=== PATIENT | male | born 1950 | race Caucasian/White ===

== ENCOUNTER 2024-08-05 10:58 | Outpatient (CLI) | payer MEDICARE, BC, SELFPAY ==
[2024-08-05 11:34] LABS: Basophils Percent Auto 0.4 % (0.2-1.2); Eosinophils Absolute Auto 0.3 K/mm3 (0-0.3); Eosinophils Percent Auto 4.8 % (0-4.4); Hematocrit 38.7 % (42.0-52.0); Hemoglobin 13.1 g/dL (14.0-18.0); Immature Granulocyte Absolute 0.02 K/mm3 (0.00-0.031); Immature Granulocyte Percent A 0.4 % (0-0.5); Mean Corpuscular HGB Conc 33.9 g/dl (32-36); Mean Corpuscular Volume 94.6 fl (80-100); Mean Platelet Volume 8.6 fl (7.4-10.4); Monocytes Absolute Auto 0.5 K/mm3 (0.1-0.6); Monocytes Percent Auto 8.8 % (2.6-8.5); Neutrophils Absolute Auto 3.4 K/mm3 (1.3-6.7); Neutrophils Percent Auto 64.6 % (45.5-73.1); Platelet Count Result 207 k/mm3 (150-375); Red Blood Count 4.09 M/mm3 (4.6-6.20); Red Cell Distribution Width 12.9 % (11.5-14.5); White Blood Count 5.2 K/mm3 (4.5-10.0)
[2024-08-05 12:42] LABS: Iron 110 ug/dL (49-181)
[2024-08-05 12:49] LABS: Alanine Aminotransferase 30 U/L (6-50); Albumin Level 4.7 g/dL (3.5-5.1); Alkaline Phosphatase 76 U/L (38-126); Anion Gap 8 mmol/L (4-12); Aspartate Amino Transferase 32 U/L (17-59); Bilirubin,Total 0.6 mg/dL (0.2-1.3); Blood Urea Nitrogen 13 mg/dL (9-20); Calcium 9.8 mg/dL (8.4-10.2); Carbon Dioxide 29 mmol/L (22-30); Chloride 103 mmol/L (98-107); Estimated Glomerular Filt Rate > 60; Glucose 105 mg/dL (65-110); Lactate Dehydrogenase 199 U/L (120-246); Potassium 4.1 mmol/L (3.4-5.0); Sodium 140 mmol/L (137-145)
[2024-08-05 12:51] LABS: Percent Iron Saturation 33 % (20-50)
[2024-08-05 15:31] LABS: Folic Acid > 20.0 ng/mL (2.76->20)
[2024-08-07 05:26] LABS: Protein, Total 7.5 g/dL (6.1-8.1)
[2024-08-08 16:07] LABS: Methylmalonic Acid 67 nmol/L (69-390)
[2024-08-11 13:09] LABS: Soluble Transferrin Receptor 1.21 mg/L (0.76-1.76)
[2024-08-12 12:49] LABS: Albumin 4.2 g/dL (3.8-4.8); Alpha 1 Globulin 0.3 g/dL (0.2-0.3); Alpha 2 Globulin 0.8 g/dL (0.5-0.9); Beta 1 Globulin 0.6 g/dL (0.4-0.6); Gamma Globulin 1.3 g/dL (0.8-1.7)
== END 2024-08-05 10:59 | disposition home or self-care (01) ==
PROVIDERS: PCP Internal Medicine; Visit Provider Internal Medicine Hematology & Oncology
DX: D64.9 Anemia, unspecified (principal)
CPT/HCPCS: 36415; 80053; 82607; 82728; 82746; 83540; 83550; 83615; 83921; 84155; 84165; 84238; 85025

== ENCOUNTER 2025-02-10 09:56 | Outpatient (CLI) | payer MEDICARE, BC, SELFPAY ==
[2025-02-10 10:07] LABS: Hematocrit 36.1 % (42.0-52.0); Hemoglobin 12.7 g/dL (14.0-18.0); Mean Corpuscular HGB Conc 35.2 g/dl (32-36); Mean Corpuscular Hemoglobin 32.5 pg (26-34); Mean Corpuscular Volume 92.3 fl (80-100); Mean Platelet Volume 8.7 fl (7.4-10.4); Platelet Count Result 189 k/mm3 (150-375); Red Blood Count 3.91 M/mm3 (4.6-6.20); Red Cell Distribution Width 12.9 % (11.5-14.5)
--- OUTSIDE RECORDS SUMMARY | 2025-02-10 11:04 | XMS_ITS | Clinical Summary ---
[facility] Organization [facility] Address [address] [place] [address] Care Team Providers Care Briquette Molder Name Role Phone Josh Ruth MD Primary Care Provider [phone] Allergies No known active allergies Medications aspirin (ECOTRIN EC) 81 mg Tablet, Delayed Release (E.C.) Take 81 mg by mouth daily. Active atorvastatin (LIPITOR) 40 mg tablet Take 40 mg by mouth daily. Active carvediloL (COREG) 12.5 mg tablet Take 12.5 mg by mouth 2 times daily. Active cyanocobalamin 1,000 mcg Tablet TAKE 1 TABLET BY MOUTH TWICE A WEEK 05/07/2024 Active NIFEdipine (PROCARDIA XL) 30 mg Extended Release 24 hour tablet Take 30 mg by mouth daily. 06/16/2024 Active ticagrelor (BRILINTA) 90 mg Tablet Take 90 mg by mouth 2 times daily. Active valsartan (DIOVAN) 320 mg tablet Take 320 mg by mouth daily. Active folic acid/multivit-mi n/lutein (CENTRUM SILVER ORAL) Take by mouth. Active Active Problems No known active problems Encounters Date Type Department Care Team Description 01/27/2025 External Device Data [facility] ABSTRACTION Provider, Abstract 01/18/2025 External Device Data [facility] ABSTRACTION Provider, Abstract 01/05/2025 External Device Data [facility]CTION Provider, Abstract 12/30/2024 External Device Data [facility]STRACTION Provider, Abstract 12/03/2024 External Device Data [facility] ABSTRACTION Provider, Abstract from Last 3 Months Family History Medical History Relation Name Comments Heart Disease Brother 1 No Known Problems Brother 2 Heart Disease Brother 3 No Known Problems Brother 4 No Known Problems Child 1 No Known Problems Child 2 No Known Problems Child 3 No Known Problems Child 4 Heart Disease Father No Known Problems Mother No Known Problems Sister 1 No Known Problems Sister 2 No Known Problems Sister 3 Relation Name Status Comments Brother 1 Alive Brother 2 Alive Brother 3 Brother 4 Alive Child 1 Alive Child 2 Alive Child 3 Alive Child 4 Alive Father Mother Sister 1 Sister 2 Alive Sister 3 Alive Social History Tobacco Use Types Packs/Day Years Used Date Smoking Tobacco: Former Cigarettes 0.5 40 0 08/05/1971 - 08/05/2011 Smokeless Tobacco: Never Tobacco Cessation:Counseling Given: Not Answered Alcohol Use Standard Drinks/Week Comments Yes 0 (1 standard drink = 0.6 oz pur e alcohol) Socially Sex and Gender Information Value Date Recorded Sex Assigned at Not on file Legal Sex Male 8:40 AM CDT Gender Identity Not on file Sexual Orientation Not on file Last Filed Vital Signs Vital Sign Reading Time Taken Comments Blood Pressure 165/74 08/19/2024 10:32 AM CDT Pulse 57 08/19/2024 10:32 AM CDT Temperature 36.7 C (98 F) 08/19/2024 10:32 AM CDT Respiratory Rate 18 08/19/2024 10:32 AM CDT Oxygen Saturation 97% 08/19/2024 10:32 AM CDT Inhaled Oxygen Concentration - - Weight 84.8 kg (187 lb) 08/19/2024 10:32 AM CDT Height - - Body Mass Index - - Plan of Treatment Upcoming Encounters Date Type Department Care Team (Late st Contact Info) Description 02/17/2025 11:30 AM CDT Office Visit [facility] Oncology and H[facility]ology - [place] [address] [facility] [address] [place] [address] Chago Richmond MD [address] [place] [address] Health Maintenance Due Date Last Done Comments DTAP/TDAP/TD VACCINES (1 - Tdap) 1967 Lung Cancer Screening 1998 RSV VACCINE (60+ or ) (1 - 1-dose 75+ series) 2023 INFLUENZA VACCINE (#1) 2024 , 08/17/2020, 09/28/2019, Additional history exists COVID-19 Vaccine (2023-2 5 season) 2024 09/08/2021, 01/24/2021, 01/03/2021 PNEUMOCOCCAL VACCINE 50+ YEARS Completed 05/09/2015 , 11/08/2014 ZOSTER VACCINE Completed 05/07/2023, 12/28/2022 Insurance MEDICARE PART A AND B [facility] Care Teams Briquette Molder Relationship Specialty Start Date End Date Josh Ruth MD [address] [place] [id number] PCP - General Internal Medicine 07/01/24
--- OUTSIDE RECORDS SUMMARY | 2025-02-10 11:04 | XMS_ITS | Clinical Summary ---
Author Organization [facility] Address [address] [place] [address] Care Team Providers Care Robotic Welder Name Role Phone Josh Ruth MD Primary Care Provider [phone] Source Comments [facility],non-owned Affiliates and Associated Physician Practices is amultiple site organization consisting of ambulatory clinics and hospital sitesin [place], [place], [place] and [place]. This disclosure is being madepursuant to the Care Everywhere program and may not contain all information available regarding this patient. 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 Social History Tobacco Use Types Packs/Day Years Used Date Smoking Tobacco: Former Alcohol Use Standard Drinks/Week Comments Yes 0 (1 standard drink = 0.6 oz pur e alcohol) Sex and Gender Information Value Date Recorded Sex Assigned at Not on file Gender Identity Not on file Sexual Orientation Not on file Last Filed Vital Signs Vital Sign Reading Time Taken Comments Blood Pressure 178/80 01/25/2016 9:26 AM CDT Pulse 60 01/25/2016 9:26 AM CDT Temperature 36.6 C (97.9 F) 01/25/2016 9:26 AM CDT Respiratory Rate - - Oxygen Saturation 99% 01/25/2016 9:26 AM CDT Inhaled Oxygen Concentration - - Weight 83 kg (183 lb) 01/25/2016 9:26 AM CDT Height 172.7 cm (5' 8 ) 01/25/2016 9:26 AM CDT Body Mass Index 27.83 01/25/2016 9:26 AM CDT Plan of Treatment Health Maintenance Due Date Last Done Comments HEPATITIS C SCREENING 05/13/1968 DTAP/TDAP/TD VACCINES (1 - Tdap) 1967 PNEUMOCOCCAL VACCINE 50+ (1 of 1 - PCV) 1998 ZOSTER VACCINE (1 of 2) 1998 Respiratory Syncytial Virus (RSV) Vaccine Pt: or over 60 yrs (1 - 1-dose 75+ series) 2023 COVID-19 VACCINE (2023-2 5 season) 2024 01/24/2021, 01/03/2021 INFLUENZA VACCINE (#1) 2024 DEPRESSION SCREENING 11/11/2024 HEPATITIS B VACCINE Aged Out No longe r eligible based on patient's age to complete this topic HIB VACCINE Aged Out No longer eligi ble based on patient's age to complete this topic HPV VACCINE Aged Out No longer eligi ble based on patient's age to complete this topic MENINGOCOCCAL (Group B) VACCINE SHARED DECISION-MAKING Aged Out No longer eligible based on patient's age to complete this topic MENINGOCOCCAL GROUPS A/C/Y/W VACCINE Aged Out No longer eligible b ased on patient's age to complete this topic Care Teams Robotic Welder Relationship Specialty Start Date End Date Josh Ruth MD [address] [place] [phone] PCP - General 11/07/10
--- OUTSIDE RECORDS SUMMARY | 2025-02-10 11:04 | XMS_ITS | Continuity of Care Document ---
Author Organization [facility] Address [address] [place] [address] Phone Care Team Providers Care Mason Tender Name Role Phone Fermin Mena Unavailable Unavailable Procedures Procedure Date Eye Exam & Treatment Refraction Advance Directives Directive Yes / No Effective Date File Name No Information Encounters Encounter Description Practice Location Reason(s) For Visit Diagnoses Date Provider Providers Copied on Encounter [facility], [address], [place], [place], [id number], [place] tel:[phone] [facility] No Information [address] Rajesh Fermin. [address] [facility] [address], [place], [address], [place]. tel:[phone] Family History Family Member Type Diagnosis Age At Onset No Information Payers Payer name Insurance type Covered alliance party ID Authoriza tion(s) No Information Social History Type Description Quantity Date Captured Comments Sex Male Smoking Status No Information Chief Complaint And Reason For Visit No Information Reason For Referral Reason For Referral No Information History Of Present Illness Encounter Date Complaint History Of Prese nt Illness No Information Functional Status Date Functional Assessmen t No Information Instructions Date Instruction Additional Infor mation No Information Assessments Type Assessment Date No Information Patient Care Teams Name Effective Dates (start - stop) Status Members No Information
--- OUTSIDE RECORDS SUMMARY | 2025-02-10 11:04 | XMS_ITS | Clinical Summary ---
Author Organization [facility] Address [address] [place] [address] Phone Care Team Providers Care Retail Bakery Manager Name Role Phone Josh Ruth MD Primary Care Provider [phone] Johny Davis MD Unavailable [phone] Bassam Erazo MD Unavailable Mayra Alonzo MD Unavailable Allergies No known active allergies Medications lisinopril (PRINIVIL, ZESTRIL) 20 MG Tablet Take 20 mg by mouth daily. Active atorvastatin (LIPITOR) 40 MG Tablet Take 40 mg by mouth daily. Active Valsartan 320 MG Tablet Take 320 mg by mouth daily. Active NIFEdipine CR (PROCARDIA-XL) 30 MG TABLET SR 24 HR Take 30 mg by mouth daily. Active Multiple Vitamins-Mineral s (CENTRUM SILVER PO) Take by mouth. Active aspirin EC 81 MG Tablet Delayed Response Take 81 mg by mouth daily. Active ticagrelor (Brilinta) 90 MG Tablet Take 90 mg by mouth 2 times daily. Active carvedilol (COREG) 12.5 MG Tablet Take 12.5 mg by mouth 2 times daily. Active Cyanocobalamin (VITAMIN B12 PO) Take by mouth. Active Active Problems Problem Noted Date Diagnosed Date Obstructive sleep apnea on CPAP 01/10/2024 Overview (04/29/2024): Diagnosed 01/2024. Family history of heart disease 05/01/2022 Overview (05/01/2022): Father with myocardial infarction and CABG in his 80s and paternal grandfather passed from a myocardial infarction in his 50s. 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. Stopped smoking with greater than 30 pack year h istory 04/27/2021 Overview (04/27/2021): 33 pack year history. Quit 2010. History of therapeutic radiation 02/05/2017 Overview (02/04/2018): Completed adjuvant postoperative radiotherapy 02/09/2011. 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 Resolved Problems Problem Noted Date Diagnosed Date Resolved Date History of surgery on upper extremity 02/04/2018 02/10/2019 Overview (02/04/2018): 11/23/2010 radical resection of right elbow leiomyosarcoma with a complex rotational flap closure of the wide excision defect which measured 5 cm x 13 cm. Immunizations Immunization Administration Dates Next Due Covid-19, Mrna, Lnp-s, Pf, 30 Mcg/0.3 Ml Dose (P fizer) 01/24/2021,01/03/2021 Family History Medical History Relation Name Comments No Known Problems Brother 1 No Known Problems Brother 2 No Known Problems Brother 3 No Known Problems Brother 4 Congestive Heart Failure Father Heart Attack Father OR and CABG at 82 years of age. Dementia Mother Heart Attack Paternal Grandfather Passed from heart attack. Hypertension Sister 1 No Known Problems Sister 2 No Known Problems Sister 3 Relation Name Status Comments Brother 1 Alive Brother 2 Alive Brother 3 Alive Brother 4 Alive Father Mother Paternal Grandfather Sister 1 Sister 2 Alive Sister 3 Alive Social History Tobacco Use Types Packs/Day Years Used Date Smoking Tobacco: Former Cigarettes 0.8 44 0 1966 - 05/18/2010 Smokeless Tobacco: Former Quit: 08/08/2011 Tobacco Cessation:Counseling Given: Not Answered Alcohol Use Standard Drinks/Week Comments Yes 1 (1 standard drink = 0.6 oz pur e alcohol) Sex and Gender Information Value Date Recorded Sex Assigned at Not on file Legal Sex Male 10:42 PM CDT Gender Identity Not on file Sexual Orientation Not on file Last Filed Vital Signs Vital Sign Reading Time Taken Comments Blood Pressure 133/79 04/29/2024 9:24 AM CDT Pulse 62 04/29/2024 9:24 AM CDT Temperature 36.6 C (97.8 F) 04/29/2024 9:24 AM CDT Respiratory Rate 16 04/25/2023 9:31 AM CDT Oxygen Saturation 98% 04/29/2024 9:24 AM CDT Inhaled Oxygen Concentration - - Weight 84.6 kg (186 lb 9.6 oz) 04/29/2024 9:24 A M CDT Height 172.7 cm (5' 8 ) 04/29/2024 9:24 AM CDT Body Mass Index 28.37 04/29/2024 9:24 AM CDT Plan of Treatment Upcoming Encounters Date Type Department Care Team (Late st Contact Info) Description 04/29/2025 9:00 AM CDT [facility] [address] [place] [address] Johny Davis MD [address] [place] [address] Discharge Disposition: Discharged to home or Selfcare Health Maintenance Due Date Last Done Comments Hepatitis C Virus (HCV) Screening 1950 TdaP Immunization 1950 Respiratory Syncytial Virus (RSV) Immunization (Adult) (1 - 1-dose 75+ series) 2023 Influenza Immunization (#1) 07/12/202408/11, 08/30/2022, 08/24/2021, Additional history exists SARS-COV-2 Immunization ( season) 2024 08/21/2023, 08/30/2022, 09/06/2021, Additional history exists Lung Cancer Screening 04/14/2025 04/14/2024 , 04/16/2023, 03/15/2022, Additional history exists Pneumococcal Immunization (50+ years) Completed 05/09/2015, 11/08/2014 Pneumococcal Immunization Combined Discontinued 05/09/2015, 11/08/2014 Zoster Immunization Completed 05/07/2023, 3 Hepatitis B Immunization Aged Out No longer eligible based on patient's age to complete this topic Meningococcal Immunization (ACWY) Aged Out No longer eligible based on patient's age to complete this topic Rotavirus Immunization Aged Out No lo nger eligible based on patient's age to complete this topic Procedures Procedure Name Priority Date/Time Associated Diagnosis Comments CT CHEST SCREENING WO Routine 04/14/2024 6:03 PM CDT History of sarcoma of soft tissue History of tobacco use from Last 3 Months or Most Recently Relevant to Health Maintenance Results * CT CHEST SCREENING WO (04/14/2024 6:03 PM CDT) Anatomical Region Laterality Modality Chest N/A Computed Tomogra phy 04/14/2024 10:2 7 PM CDT Impressions 04/14/2024 10:31 PM CDT IMPRESSION: 1. Unchanged 5 mm solid nodule in the left lower lobe. No new pulmonary nodules. 2. Mild emphysema. 3. Severe coronary artery calcifications. Lung-RADS category 2S: Benign appearance or behavior. Finding other than a pulmonary nodule which is potentially clinically significant. Recommendation: Low dose Screening CT of chest in 12 months. Narrative 04/14/2024 10:31 PM CDT EXAM DESCRIPTION: CT CHEST SCREENING WO REASON FOR STUDY: Screening CT of the chest in a former smoker with a 30 pack year smoking history. Additional history: Stopped smoking 13 years prior. TECHNIQUE: Low dose CT scan of the chest was performed without intravenous contrast using helical scanning technique. The exam extends from the lung apices through the lung bases. Automatic exposure control was used as a dose optimization technique. NOTE: This study was performed for the specific purposes of lung cancer screening and is not an alternative to diagnostic chest CT. RADIATION DOSE: CT dose index volume (CTDIvol) = 3.62 mGy COMPARISON: CT chest 04/16/2023 FINDINGS: SMOKING RELATED LUNG DISEASE: Mild emphysema and biapical pleural-parenchymal scarring. LUNG NODULES: Unchanged 5 mm solid nodule in the left lower lobe on image 114. No new pulmonary nodules appreciated. CORONARY ARTERY CALCIFICATION: Severe OTHER: No pleural effusion or pneumothorax. The central airways are patent. Heart size is normal. No pericardial effusion. Thoracic aorta is nonaneurysmal and contains a moderate amount of calcified atherosclerotic plaque. There are multiple prominent but nonenlarged mediastinal lymph nodes. Visualized portions of the upper abdomen are unremarkable. There is diffuse idiopathic skeletal hyperostosis of the thoracic spine. There are no suspicious osseous lesions. THIS IS AN ELECTRONICALLY VERIFIED FINAL REPORT 04/14/2024 10:27 PM - Electronically signed by Luis Suero M.D. AM: AM Report ID: [id number] Reading Location: [place] [address] Procedure Note Luis Suero MD - 04/14/2024 EXAM DESCRIPTION: CT CHEST SCREENING WO REASON FOR STUDY: Screening CT of the chest in a former smoker with a 30 pack year smoking history. Additional history: Stopped smoking 13 years prior. TECHNIQUE: Low dose CT scan of the chest was performed without intravenous contrast using helical scanning technique. The exam extends from the lung apices through the lung bases. Automatic exposure control was used as a dose optimization technique. NOTE: This study was performed for the specific purposes of lung cancer screening and is not an alternative to diagnostic chest CT. RADIATION DOSE: CT dose index volume (CTDIvol) = 3.62 mGy COMPARISON: CT chest 04/16/2023 FINDINGS: SMOKING RELATED LUNG DISEASE: Mild emphysema and biapical pleural-parenchymal scarring. LUNG NODULES: Unchanged 5 mm solid nodule in the left lower lobe on image 114. No new pulmonary nodules appreciated. CORONARY ARTERY CALCIFICATION: Severe OTHER: No pleural effusion or pneumothorax. The central airways are patent. Heart size is normal. No pericardial effusion. Thoracic aorta is nonaneurysmal and contains a moderate amount of calcified atherosclerotic plaque. There are multiple prominent but nonenlarged mediastinal lymph nodes. Visualized portions of the upper abdomen are unremarkable. There is diffuse idiopathic skeletal hyperostosis of the thoracic spine. There are no suspicious osseous lesions. THIS IS AN ELECTRONICALLY VERIFIED FINAL REPORT 04/14/2024 10:27 PM - Electronically signed by Luis Suero M.D. AM: AM Report ID: [id number] Reading Location: [id number] IMPRESSION: 1. Unchanged 5 mm solid nodule in the left lower lobe. No new pulmonary nodules. 2. Mild emphysema. 3. Severe coronary artery calcifications. Lung-RADS category 2S: Benign appearance or behavior. Finding other than a pulmonary nodule which is potentially clinically significant. Recommendation: Low dose Screening CT of chest in 12 months. us Johny Davis MD IMG CT ORDERABLES Final Result from Last 3 Months or Most Recently Relevant to Health Maintenance Insurance MEDICARE [facility] Care Teams Retail Bakery Manager Relationship Specialty Start Date End Date Josh Ruth MD [address] [facility] [address] [place] [address] PCP - General Internal Medicine 08/29/15 Johny Davis MD [address] [facility] [address] [place] [phone] Consulting Physician Radiation Oncology 02/05/17 Bassam Erazo MD [address] [facility] [address] [place] [phone] Consulting Physician General Surgery 02/05/17 Mayra Alonzo MD [address] [place] [address] Consulting Physician Dermatology 02/10/19
--- OUTSIDE RECORDS SUMMARY | 2025-02-10 11:04 | XMS_ITS | CONTINUITY OF CARE DOCUMENT ---
Author Name stefania aguiar Address Unknown Organization [facility] Address [address] [place] [address] Phone [phone] Care Team Providers Care Hair Dresser Name Role Phone Cory CARDENAS, Shad Unavailable BARBARA CARDENAS, LUCIA Unavailable [phone] LUCIA JIMENEZ MD Unavailable PROBLEMS Condition Status Date Provider Notes Screening active Shad Ray MD Anemia of chronic disease active Shad Ray MD Valvular heart disease active Shad Ray MD Diastolic dysfunction and lvh active Shad Ray MD Ventricular tachycardia, unspecified active Shad Ray MD Groin pain, right completed - Shad Ray MD LVH completed - Shad Ray MD Sleep apnea active Shad Ray MD Overweight active Shad Ray MD did not want wegovy CAD active Shad Ray MD Hemiblock, left anterior completed - Shad Ray MD AV block, 1st degree completed - Shad Ray MD Bradycardia And first degree av block;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;neg tsh active Shad Ray MD covid 19;2020;HAD VACCINE active Shad Ray MD Tobacco use, quit active Shad Ray MD FAMILY HISTORY OF HEART DISEASE active Shad Ray MD dad had chf HYPERTENSION, ESSENTIAL;neg duplex active Shad Ray MD Hyperlipidemia;NEG CRP and lpa active Shad Ray MD in study Sarcoma, 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 ENCOUNTERS Date Type Provider Location Encounter Diag nosis - In-person encounter Office Visit Shad Ray MD [place] [facility] Hyperlipidemia;NEG CRP and lpaHemiblock, left anteriorOverweight - In-person encounter Office Visit Shad Ray MD [facility] Bradycardia And first degree av block;DUE TO BB;neg tshAV block, 1st degree - In-person encounter Office Visit Shad Ray MD [facility] - In-person encounter Office Visit Shad Ray MD [facility] LVHGroin pain, rightVentricular tachycardia, unspecifiedDiastolic dysfunction and lvh - In-person encounter Office Visit Shad Ray MD [facility] - In-person encounter Office Visit Shad Ray MD [facility] - In-person encounter Office Visit Shad Ray MD [facility] Sarcoma, boneHyperlipidemia;NEG CRP and lpaHYPERTENSION, ESSENTIAL;neg duplexFAMILY HISTORY OF HEART DISEASETobacco use, quitcovid ;HAD VACCINEBradycardia And first degree av block;DUE TO BB;neg tshCADOverweightSleep apnea VITAL SIGNS Date Observation Value Provider Body Mass Index (Ratio) 28.89 kg/m2 Heidy Ray MD weight E&M 190 [lb_av] Lisbeth Ulloa pulse rate 67 /min Lisbeth Ulloa blood pressure, cuff size regular Christiano Ulloa blood pressure, diastolic 78 mm[Hg] Christiano Ulloa blood pressure, systolic 118 mm[Hg] Romulo Ulloa oxygen saturation, oximetry 97 % Lisbeth Ulloa respiratory rate E&M 12 /min Lisbeth Ulloa height E&M 68 [in_i] Lisbeth Ulloa Body Mass Index (Ratio) 27.97 kg/m2 Heidy Ray MD blood pressure, diastolic 89 mm[Hg] Jyothi dave Tavarez blood pressure, systolic 161 mm[Hg] Bev james Corby oxygen saturation, oximetry 98 % Ileana Corby pulse rate 68 /min Ileana Corby weight E&M 184 [lb_av] Ileana Corby blood pressure, cuff size large An dave Corby height E&M 68 [in_i] Ileana Corby Body Mass Index (Ratio) 27.82 kg/m2 Heidy Ray MD blood pressure, cuff size regular [facility], diastolic 90 mm[Hg] Ke rri Fideluenerajaniuniversity [facility] medical centergloria blood pressure, systolic 156 mm[Hg] Joan Gustafson oxygen saturation, oximetry 98 % Lindsey Gustafson respiratory rate E&M 12 /min Lindsey mcintyre pulse rate 67 /min Lindsey Norwood [facility] weight E&M 183 [lb_av] Lindsey Saravanannenfe [facility] height E&M 68 [in_i] Lindsey Saravanannebk [facility] Body Mass Index (Ratio) 28.13 kg/m2 Heidy Ray MD blood pressure, cuff size regular Ja rret blood pressure, diastolic 92 mm[Hg] Daniel rret blood pressure, systolic 176 mm[Hg] Chau coronado pulse rate 57 /min Ismael respiratory rate E&M 14 /min oxygen saturation, oximetry 99 % weight E&M 185 [lb_av] Ismael height E&M 68 [in_i] Ismael Body Mass Index (Ratio) 27.52 kg/m2 Heidy Ray MD blood pressure, cuff size regular rret blood pressure, diastolic 91 mm[Hg] Ja rret blood pressure, systolic 191 mm[Hg] Jar ret pulse rate 51 /min Ismael oxygen saturation, oximetry 99 % respiratory rate E&M 12 /min Isamel weight E&M 181 [lb_av] Ismael height E&M 68 [in_i] Ismael Body Mass Index (Ratio) 27.67 kg/m2 Heidy Ray MD blood pressure, cuff size regular [facility] blood pressure, diastolic 82 mm[Hg] rret blood pressure, systolic 170 mm[Hg] [facility] ret pulse rate 50 /min Ismael oxygen saturation, oximetry 97 % respiratory rate E&M 12 /min Ismael weight E&M 182 [lb_av] Ismael height E&M 68 [in_i] Ismael Body Mass Index (Ratio) 27.52 kg/m2 Heidy Ray MD blood pressure, diastolic -1 mm[Hg] Carito Villavicencio blood pressure, systolic 150 mm[Hg] Marjan Delcid blood pressure, diastolic 87 mm[Hg] Dionicio Peck blood pressure, systolic 150 mm[Hg] She ren Peck oxygen saturation, oximetry 96 % Stephanie Peck pulse rate 52 /min Stephanie Peck respiratory rate E&M 18 /min Stephanie Peck blood pressure, cuff size regular Dionicio Peck height E&M 68 [in_i] Stephanie Peck weight E&M 181 [lb_av] Stephanie Peck ALLERGIES No Known Drug Allergies HISTORY OF MEDICATION USE Medication Status Instructions Dates Provider Indications Com ments valsartan 320 mg tablet active TAKE 1 TABLET BY MOUTH DAILY Thea Ruple nifedipine 30 mg tablet extended release 24hr active TAKE 1 TABLET ONCE DAILY Phyllis Rushing nifedipine 30 mg tablet extended release 24hr completed Take 1 tablet by mouth once a day - Phyllis Rushing Xarelto 2.5 mg tablet active Take 1 tablet by mouth twice a day Yane Tavarez RN nifedipine 30 mg tablet extended release 24hr completed - Yane Tavarez RN Procardia XL 30 mg tablet extended release 24hr completed TAKE 1 TABLET BY MOUTH EVERY DAY - Shad Ray MD Brilinta 90 mg tablet completed Take 1 tablet by mouth twice a day - Shad Ray MD cyanocobalamin (vitamin B-12) 1,000 mcg capsule active every 72 hours Shad Ray MD valsartan 320 mg tablet completed Take 1 tablet by mouth once daily - Thea Ruple Coreg 12.5 mg tablet active Take 1 tablet by mouth twice a day Lindsey Gustafson Brilinta 90 mg tablet completed TAKE 1 TABLET TWICE A DAY - Lindsey Gustafson pantoprazole 40 mg tablet,delayed release (DR/EC) completed Take 1 tablet by mouth once a day - Sofia Shoemaker NP Aspirin Childrens 81 mg tablet,chewable active Take 1 tablet by mouth once a day Sofia Shoemaker NP lisinopril 20 mg tablet completed TAKE 1 TABLET BY MOUTH EVERY DAY - Shad Ray MD metoprolol tartrate 25 mg tablet completed Take 1 tablet by mouth twice a day - Sofia Shoemaker NP atorvastatin 40 mg tablet active Take 1 tablet by mouth once daily Sofia Shoemaker NP SOCIAL HISTORY Date Observation Value Provider personal history of marijuana use no Shad Ray MD drug use no Shad Serota Jacquelyn Mejia alcohol use, average drinks per day social Shad Ray MD alcohol use yes Shad Mejia cigarette use yes Shad Ray MD smoking status Former smoker Shad james MD personal history of marijuana use no Ileana Tavarez drug use no Ileanajacob Tavarez alcohol use, average drinks per day social Ileana Tavarez alcohol use yes Ileana Tavarez cigarette use yes Ileana Tavarez smoking status Former smoker Ileana barros personal history of marijuana use no Shad Ray MD drug use no Shad Mejia alcohol use, average drinks per day social Shad Ray MD alcohol use yes Shad Serota Jacquelyn Mejia cigarette use yes Shad Ray MD smoking status Former smoker Shad james MD personal history of marijuana use no Shad Ray MD drug use no Shad Serota Jacquelyn Mejia alcohol use, average drinks per day social Shad Ray MD alcohol use yes Shad Mejia cigarette use yes Shad Ray MD smoking status Former smoker Shad james MD quit smoking, stage quit Shad clemente MD personal history of marijuana use no Sofia Zepedareri DISTANCE LEARNING TECHNICIAN drug use no Sofia Zepedareri DISTANCE LEARNING TECHNICIAN alcohol use, average drinks per day social Sofia Zepedareri DISTANCE LEARNING TECHNICIAN alcohol use yes Sofia Zepedareri DISTANCE LEARNING TECHNICIAN cigarette use yes Sofia Zepedareri DISTANCE LEARNING TECHNICIAN smoking status Former smoker Sofia Zepedare ri DISTANCE LEARNING TECHNICIAN drug use no Kiki Ventimig lauryn [employer]ILK PRINTER alcohol use, average drinks per day social Kiki Ventimiglia [employer] PRINTER alcohol use yes Kiki Ventimig lauryn [employer]K PRINTER smoking status Former smoker Kiki Venti miglia SILK PRINTER quit smoking, stage quit Shad clemente MD social history E&M S moking History: James garcia is a former smoker. Shad Ray MD social history reviewed E&M revi ewed - no changes required Shad Ray MD cigarette use yes Stephanie Peck smoking status Former smoker Stephanie alvarado FUNCTIONAL STATUS Date Observation Value Provider HRA, CV Assess/Plan, Angina (inactive) Management Plan continue current therapy Shad Ray MD HRA, CV Assess/Plan, Angina (inactive) Management Plan continue current therapy Shad Ray MD HRA, CV Assess/Plan, Angina (inactive) Management Plan continue current therapy Shad Ray MD HRA, CV Assess/Plan, Angina (inactive) Management Plan continue current therapy Shad Ray MD HRA, CV Assess/Plan, Angina (inactive) Management Plan continue current therapy Sofia Zepedadesiree DISTANCE LEARNING TECHNICIAN HRA, CV Assess/Plan, Angina (inactive) Management Plan continue current therapy Kiki Ventimiglia [facility] INSURANCE PROVIDERS Payer name Policy type / Coverage type Bella red republican [place] B Medicare [id number] [facility] [id number] ADVANCE DIRECTIVES Name Date DISCUSSED - NO DECISION MADE TREATMENT PLAN Date Name Performer [id number],C,o n statin w ill update lipids [facility] [id number],C,B P elevated today W ill plan for home RPM i f BP remains elevated will have him return sooner for med adjustement [facility] [id number],C,will do f/u l abs [facility] [id number],C,will do titra tion study [facility] [id number],C,H ematoma post cath n o pseudoanuerysm identified initially s till has hematoma noted at rt groin into scrotum w ill do f/u duplex to r/o pseudoaneurysm [facility] [id number],C,U nderwent recent cath and stent to LM stenosis f eeling well r emains on asa, brilinta, BB and statin H is updated medication list for this problem includes: Aspirin Childrens 81 Mg Tablet,chewable (Aspirin) Lisinopril 20 Mg Tablet (Lisinopril) Metoprolol Tartrate 25 Mg Tablet (Metoprolol tartrate) [facility] [id number],C,mild Shad clemente MD [id number],C,lvedp 20 pre cabg Shad Ray MD [id number],C,90% ostial le ft main Shad Ray MD [id number],C,neg uacr and egt Shad Ray MD [id number],C,mild mr and t r nml pap Shad Ray MD [id number],S,SX Shad vance MD [id number],S, Shad james MD [id number],S, Shad james MD [id number],N, Shad james MD [id number],N, Shad jmaes MD [id number],S, Shad james MD [id number],S, Shad james MD [id number],B, Shad james MD [id number],S,ct per jack Ray MD Cardiology Shad Ray MD Cardiology Shad Ray MD Cardiology: c t per herbert Ray MD Cardiology Shad Ray MD Cardiology Shad Ray MD Cardiology: T he patient is using CPAP on a regular basis. The patient has been benefiting from therapy and should continue use. Shad Ray MD Cardiology: n eg uacr and egt Shad Ray MD Cardiology Shad Ray MD Cardiology: m ild mr and tr nml pap Shad Ray MD Cardiology: U nderwent recent cath and stent to LM stenosis (08/2023) for oomplerte Shad Ray MD Cardiology: H is updated medication list for this problem includes: Nifedipine 30 Mg Tablet Extended Release 24hr (Nifedipine) Valsartan 320 Mg Tablet (Valsartan) ..... Take 1 tablet by mouth once daily Coreg 12.5 Mg Tablet (Carvedilol) ..... Take 1 tablet by mouth twice a day Aspirin Childrens 81 Mg Tablet,chewable (Aspirin) ..... Take 1 tablet by mouth once a day BP today: 118/78 P rior BP: 161/89 (02/01/2024) Shad Ray MD Cardiology: e f 60 lvedp 20 Shad Ray MD Cardiology Shad Ray MD Cardiology: c t marcie godinez Shad Ray MD Cardiology: 1 2 beasts on 30 day Shad Ray MD Cardiology: n eg uacr and egt Shad Ray MD Cardiology: H is updated medication list for this problem includes: Atorvastatin 40 Mg Tablet (Atorvastatin) ..... Take 1 tablet by mouth once daily Shad Ray MD Cardiology: T he following medications were removed from the medication list: Procardia Xl 30 Mg Tablet Extended Release 24hr (Nifedipine) ..... Take 1 tablet by mouth every day His updated medication list for this problem includes: Nifedipine 30 Mg Tablet Extended Release 24hr (Nifedipine) Valsartan 320 Mg Tablet (Valsartan) ..... Take 1 tablet by mouth once daily Coreg 12.5 Mg Tablet (Carvedilol) ..... Take 1 tablet by mouth twice a day Aspirin Childrens 81 Mg Tablet,chewable (Aspirin) ..... Take 1 tablet by mouth once a day BP today: 161/89 P rior BP: 156/90 (01/23/2024) Shad Ray MD Cardiology: m ild mr and tr nml pap Shad Ray MD Cardiology: U nderwent recent cath and stent to LM stenosis (08/2023) for oomplerte Shad Ray MD Cardiology:awaitng on machine Cook jagruti Ray MD Cardiology Shad Ray MD Cardiology Shad Ray MD Cardiology: e f 60 lvedp 20 Shad Ray MD Cardiology: e f 60 lvedp 20 Shad Ray MD Cardiology Shad Ray MD Cardiology: U nderwent recent cath and stent to LM stenosis (08/2023) for oomplerte Shad Ray MD Cardiology Shad Ray MD Cardiology Shad Ray MD Cardiology: H is updated medication list for this problem includes: Valsartan 320 Mg Tablet (Valsartan) ..... Take 1 tablet by mouth once daily Coreg 12.5 Mg Tablet (Carvedilol) ..... Take 1 tablet by mouth twice a day Aspirin Childrens 81 Mg Tablet,chewable (Aspirin) ..... Take 1 tablet by mouth once a day BP today: 156/90 P rior BP: 176/92 (01/16/2024) Shad Ray MD Cardiology Shad Ray MD Cardiology:having new test done Shad Ray MD Cardiology: n eg uacr and egt Shda Ray MD Cardiology: m ild mr and tr nml pap Shad Ray MD Cardiology: 1 2 beasts on 30 day Shad Ray MD Cardiology Shad Ray MD Cardiology Shad Ray MD Cardiology:insurnce not covred h is julianna Shad Ray MD Cardiology:12 beasts on 30 day H murray Ray MD Cardiology Shad Ray MD Cardiology Shad Ray MD Cardiology:ef 60 lvedp 20 Shad Ray MD Cardiology: m ild mr and tr nml pap (last echo 08/2023) Shad Ray MD Cardiology: c t per harmaon Shad Ray MD Cardiology: U nderwent recent cath and stent to LM stenosis (08/2023) for oomplerte Shad Ray MD Cardiology: n eg uacr and egt Shad Ray MD Cardiology: l vedp 20 pre cabg Sofia Shoemaker NP Cardiology: s cheduled for titration study on 12/04/23 Sofia Shoemaker NP Cardiology: d enies associated symptoms w ill switch from metoprolol to coreg w ill get 30 day telesentry and monitor HR on Coreg Sofia Shoemaker NP Cardiology: H ematoma post cath n o pseudoanuerysm identified initially s till has hematoma noted at rt groin into scrotum w ill do f/u duplex to r/o pseudoaneurysm 11/20/2023 F ollow up duplex with no evidence for psuedo aneurysm Sofia Santanaalvaro COOPER Cardiology: m ild mr and tr nml pap (last echo 08/2023) Sofia Navid COOPER Cardiology: TOTAL 142, HDL 37, LDL 89, TRI 78 (09/2023) H is updated medication list for this problem includes: Atorvastatin 40 Mg Tablet (Atorvastatin) ..... Take 1 tablet by mouth once daily Sofia Navid COOPER Cardiology: B P elevated in office today. W ill switch from metoprolol to coreg W ill need RPM Kandaceradha Navid COOPER Cardiology: U nderwent recent cath and stent to LM stenosis (08/2023) f eeling well r emains on asa, brilinta, BB and statin Kandaceradha Navid COOPER Cardiology:on statin w ill update lipids [facility] Cardiology:BP elevat ed today W ill plan for home RPM i f BP remains elevated will have him return sooner for med adjustement [facility] Cardiology:will do f/u labs Daniel da Ventimiglia [facility] Cardiology:will do titration leora dy [place] Ventimiglia [facility] Cardiology:Hematoma post cath n o pseudoanuerysm identified initially s till has hematoma noted at rt groin into scrotum w ill do f/u duplex to r/o pseudoaneurysm [place] Ventimiglia [facility] Cardiology:Underwent recent cath and stent to LM stenosis f eeling well r emains on asa, brilinta, BB and statin H is updated medication list for this problem includes: Aspirin Childrens 81 Mg Tablet,chewable (Aspirin) Lisinopril 20 Mg Tablet (Lisinopril) Metoprolol Tartrate 25 Mg Tablet (Metoprolol tartrate) [place] Ventimiglia [facility] titration:mild Shad Serota MD :lvedp 20 pre cabg Shad Ray MD :90% ostial left main Shad vance MD lhc only:neg uacr and egt Shad Ray MD NEEDSD ANMEMI WUL AND TSH:mild m r and tr nml pap Shad Ray MD Cardiology;nothin in clindesk:SX Shad Ray MD Cardiology;nothin in clindesk Cook jagruti Ray MD Cardiology;nothin in clindesk Cook jagruti Ray MD Cardiology;nothin in clindesk Cook jagruti Ray MD Cardiology;nothin in clindesk Cook jagruti Ray MD Cardiology;nothin in clindesk Cook jagruti Ray MD Cardiology;nothin in clindesk Cook jagruti Ray MD Cardiology;nothin in clindesk Cook jagruti Ray MD Cardiology;nothin in clindesk:ct per harmaon Shad Ray MD Date Name Holter Monitor 24 Hr Complete Echo Renal Artery Duplex Holter Monitor 24 Hr TSH, free T4, total T3 Renal Artery Duplex Complete Echo Holter Monitor 24 Hr Renal Artery Duplex Complete Echo Holter Monitor 24 Hr Monitor - Telemetry (Mobile Cardiac) RPM (remote patient monitoring) Arterial Duplex to r /o pseudoanuerysm LIPID PANEL FOLATE, SERUM VITAMIN B12 IRON AND TOTAL IRON BINDING CAPACITY FERRITIN CBC (INCLUDES DIFF/P LT) Sleep Study Titratio n RPM (remote patient monitoring) Complete Echo CRP, high sensitivit y Lipoprotein (a) Microalb/Creatinine Urine, Random PROTHROMBIN TIME WIT H INR LIPID PANEL CBC (INCLUDES DIFF/P LT) BASIC METABOLIC PANE L W/EGFR Sleep Study Home Complete Echo RPM (remote patient monitoring) HISTORY OF PROCEDURES Procedure Date Procedure Name Provider Procedure Notes S tatus Complex e/m visit add on Shad Ray MD completed
[2025-02-10 11:24] LABS: Iron 84 ug/dL (49-181)
[2025-02-10 11:28] LABS: Anion Gap 8 mmol/L (4-12); Blood Urea Nitrogen 17 mg/dL (9-20); Calcium 9.7 mg/dL (8.4-10.2); Carbon Dioxide 27 mmol/L (22-30); Chloride 105 mmol/L (98-107); Estimated Glomerular Filt Rate > 60; Glucose 124 mg/dL (65-110); Potassium 4.1 mmol/L (3.4-5.0); Sodium 140 mmol/L (137-145)
[2025-02-10 11:34] LABS: Percent Iron Saturation 27 % (20-50)
[2025-02-10 12:38] LABS: Folic Acid > 20.0 ng/mL (2.76->20)
== END 2025-02-10 09:57 | disposition home or self-care (01) ==
LOC: ANHLAB 09:57
PROVIDERS: PCP Internal Medicine; Visit Provider Internal Medicine Hematology & Oncology
DX: D64.9 Anemia, unspecified (principal)
CPT/HCPCS: 36415; 80048; 82607; 82728; 82746; 83540; 83550; 85027

== ENCOUNTER 2025-08-30 09:20 | Outpatient (CLI) | payer MEDICARE, BC, SELFPAY ==
[2025-08-30 09:35] LABS: Hematocrit 37.8 % (42.0-52.0); Hemoglobin 13.0 g/dL (14.0-18.0); Immature Granulocyte Percent A 0.2 % (0-0.5); Lymphocytes Absolute Auto 1.31 K/mm3 (0.9-3.2); Mean Corpuscular HGB Conc 34.4 g/dl (32-36); Mean Corpuscular Hemoglobin 32.4 pg (26-34); Mean Corpuscular Volume 94.3 fl (80-100); Nucleated Red Blood Cells Absolute Auto 0.000 K/mm3 (0.0-0.012); Nucleated Red Blood Cells Perc 0.0 % (0.0-0.2); Platelet Count Result 186 k/mm3 (150-375); Red Blood Count 4.01 M/mm3 (4.6-6.20); White Blood Count 4.9 K/mm3 (4.5-10.0)
--- OUTSIDE RECORDS SUMMARY | 2025-08-30 10:18 | XMS_ITS | Clinical Summary ---
Author Organization [facility] Address [address] [place] [address] Care Team Providers Care Hose Handler Name Role Phone Josh Ruth MD Primary Care Provider [phone] Source Comments [facility] [employer],non-owned Affiliates and Associated Physician Practices is amultiple site organization consisting of ambulatory clinics and hospital sitesin [place], [place], [place] and [place]. This disclosure is being madepursuant to the Care Everywhere program and may not contain all information available regarding this patient. 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[employer] Gender Identity Not on file Sexual Orientation [...] 9:26 AM CDT Height 172.7 cm (5' 8) 01/25/2016 9:26 AM CDT Body Mass Index 27.83 01/25/2016 9:26 AM CDT Plan of Treatment Health Maintenance Due Date Last Done Comments HEPATITIS C SCREENING 05/13/1968 DTAP/TDAP/TD VACCINES (1 - Tdap) 1967 PNEUMOCOCCAL VACCINE 50+ (1 of 1 - PCV) 1998 ZOSTER VACCINE (1 of 2) 1998 Respiratory Syncytial Virus (RSV) Vaccine Pt: or over 60 yrs (1 - 1-dose 75+ series) 2023 DEPRESSION SCREENING 11/11/2024 COVID-19 VACCINE (3 - 2024-2 6 season) 2025 01/24/2021, 01/03/2021 INFLUENZA VACCINE (#1) 2025 HEPATITIS B VACCINE Aged Out No longe [...] age to complete this topic Care Teams Hose Handler Relationship Specialty Start Date End Date Josh Ruth MD [address] [place] [id number] PCP - General 11/07/10
--- OUTSIDE RECORDS SUMMARY | 2025-08-30 10:18 | XMS_ITS | Clinical Summary ---
Author Organization [facility] Address [address] [place] [address] Phone Care Team Providers Care Wind Turbine Service Technician Name Role Phone Josh Ruth MD Primary Care Provider Johny Davis MD Unavailable Bassam Erazo MD Unavailable Mayra Alonzo MD Unavailable Chago Richmond Unavailable Allergies No known active allergies Medications atorvastatin (LIPITOR) 40 MG Tablet Take 40 mg by mouth daily. Active Valsartan 320 MG Tablet Take 320 mg by mouth daily. Active NIFEdipine CR (PROCARDIA-XL) 30 MG TABLET SR 24 HR Take 30 mg by mouth daily. Active Multiple Vitamins-Mineral s (CENTRUM SILVER PO) Take by mouth. Active aspirin EC 81 MG Tablet Delayed Response Take 81 mg by mouth daily. Active carvedilol (COREG) 12.5 MG Tablet Take 12.5 mg by mouth 2 times daily. Active Cyanocobalamin (VITAMIN B12 PO) Take by mouth. Active Xarelto 2.5 MG Tablet 2.5 mg 2 times daily. 07/16/2024 Active Ferrous Sulfate (IRON PO) Take 1 Tablet by mouth daily. Active Active Problems Problem Noted Date Diagnosed Date Obstructive sleep apnea on CPAP 01/10/2024 Overview (04/29/2024): Diagnosed 01/2024. Family history of heart disease 05/01/2022 Overview (05/01/2022): Father with myocardial infarction and CABG in his 80s and paternal grandfather passed from a myocardial infarction in his 50s. 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 Stopped smoking with greater than 30 pack year h istory 04/27/2021 Overview (04/27/2021): 33 pack year history. Quit 2010. History of therapeutic radiation 02/05/2017 Overview (02/04/2018): Completed adjuvant postoperative radiotherapy 02/09/2011. 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 [...] - 05/18/2010 Smokeless Tobacco: Former Quit: 08/08/2011 Alcohol Use Standard Drinks/Week Comments Yes 1 (1 standard drink = 0.6 oz pur e alcohol) Sex and Gender Information Value Date Recorded Sex Assigned at Not on file Legal Sex Male 10:42 PM CDT Gender Identity Not on file Sexual Orientation Not on file Last Filed Vital Signs Vital Sign Reading Time Taken Comments Blood Pressure 136/74 04/29/2025 8:52 AM CDT Pulse 63 04/29/2025 8:52 AM CDT Temperature 36.4 C (97.6 F) 04/29/2025 8:52 AM CDT Respiratory Rate 16 04/29/2025 8:52 AM CDT Oxygen Saturation 95% 04/29/2025 8:52 AM CDT Inhaled Oxygen Concentration - - Weight 87.7 kg (193 lb 6.4 oz) 04/29/2025 8:52 A M CDT Height 172.7 cm (5' 8) 04/29/2025 8:52 AM CDT Body Mass Index 29.41 04/29/2025 8:52 AM CDT Plan of Treatment Upcoming Encounters Date Type Department Care Team (Late st Contact Info) Description 04/28/2026 8:30 AM CDT Office Visit [facility] [address] [place] [address] Johny Davis MD [address] [place] [address] Discharge Disposition: Discharged to home or Selfcare Health Maintenance Due Date Last Done Comments Hepatitis C Virus (HCV) Screening 1950 TdaP Immunization 1950 Medicare Initial AWV G0438 05/11/2014 Respiratory Syncytial Virus (RSV) Immunization (Adult) (1 - 1-dose 75+ series) 2023 Influenza Immunization (#1) 2025 11/0 02/2024, 08/21/2023, 08/30/2022, Additional history exists SARS-COV-2 Immunization ( season) 2025 09/14/2024, 08/21/2023, 08/30/2022, Additional history exists Pneumococcal Immunization (50+ years) Completed 05/09/2015, 11/08/2014 Pneumococcal Immunization Combined Discontinued 05/09/2015, 11/08/2014 Zoster Immunization Completed 05/07/2023, Lung Cancer Screening Discontinued 04/14/2024 , 04/16/2023, 03/15/2022, Additional history exists Hepatitis B Immunization Aged Out No longer eligible based on patient's age to complete this topic Human Papillomavirus (HPV) Immunization Aged Out No longer eligible based [...] Luis Suero M.D. AM: AM Report ID: [id number] Reading Location: [id number] Procedure Note Luis Suero MD - 04/14/2024 [...] Luis Suero M.D. AM: AM Report ID: [id number] Reading Location: [id number] IMPRESSION: 1. Unchanged 5 mm solid nodule in the left lower lobe. No new pulmonary nodules. 2. Mild emphysema. 3. Severe coronary artery calcifications. Lung-RADS category 2S: Benign appearance or behavior. Finding other than a pulmonary nodule which is potentially clinically significant. Recommendation: Low dose Screening CT of chest in 12 months. Johny Davis MD [facility]LES Final Result from Last 3 Months or Most Recently Relevant to Health Maintenance Insurance MEDICARE [facility] Member Subscriber Plan / Payer (Ef fective 2016-Present) Name:Hamilton Kingsley Relation to Subscriber:Self Name:Hamilton Kingsley Payer ID:[id number] Group ID:[id number] Type:PPO Address: [address] [place] [address] Care Teams Wind Turbine Service Technician Relationship Specialty Start Date End Date Josh Ruth MD [address] [place] [id number] PCP - General Internal Medicine 08/29/15 Johny Davis MD [address] [place] [address] Consulting Physician Radiation Oncology 02/05/17 Bassam Erazo MD [address] [place] [address] Consulting Physician General Surgery 02/05/17 Mayra Alonzo MD [address] [place] [address] Consulting Physician Dermatology 02/10/19 Chago Richmond [address] [facility] [address] [place] [address] Consulting Physician Hematology 04/28/25
--- OUTSIDE RECORDS SUMMARY | 2025-08-30 10:18 | XMS_ITS | Clinical Summary ---
Author Organization [facility] Address [address] [place] [address] Care Team Providers Care Senior Business Manager Name Role Phone Josh Ruth MD Primary Care Provider [phone] Allergies No known active allergies Medications aspirin [...] Encounters Date Type Department Care Team Description 08/17/2025 External Device Data [facility] ABSTRACTION Provider, Abstract 07/27/2025 External Device Data [facility] [place]STRACTION Provider, Abstract 07/27/2025 External Device Data [facility] [place]STRACTION Provider, Abstract 07/14/2025 External Device Data [facility]STRACTION Provider, Abstract 06/30/2025 External Device Data [facility] ABSTRACTION Provider, Abstract 06/29/2025 External Device Data [facility] ABSTRACTION Provider, Abstract 06/15/2025 External Device Data [facility] ABSTRACTION Provider, Abstract [...] Sign Reading Time Taken Comments Blood Pressure 129/69 02/17/2025 11:16 AM CDT Pulse 60 02/17/2025 11:16 AM CDT Temperature 36.1 C (96.9 F) 02/17/2025 11:16 AM CDT Respiratory Rate 15 02/17/2025 11:16 AM CDT Oxygen Saturation 96% 02/17/2025 11:16 AM CDT Inhaled Oxygen Concentration - - Weight 86.9 kg (191 lb 9.6 oz) 02/17/2025 11:16 AM CDT Height - - Body Mass Index - - Plan of Treatment Upcoming Encounters Date Type Department Care Team (Late st Contact Info) Description 09/01/2025 10:00 AM CDT Office Visit [facility] Oncology and H[facility]ology [place] [address] [facility] [address] [place] [address] Chago Richmond MD [address] [facility] [address] [place] [address] Health Maintenance Due Date Last Done Comments DTAP/TDAP/TD VACCINES (1 - Tdap) 1969 Traditional Medicare (ACO) A nnual Wellness Visit 1969 Lung Cancer Screening 1998 RSV VACCINE (60+ or ) (1 - 1-dose 75+ series) 2023 INFLUENZA VACCINE (#1) 2025 , 08/17/2020, 09/28/2019, Additional history exists COVID-19 Vaccine (2024-2 6 season) 2025 09/08/2021, 01/24/2021, 01/03/2021 PNEUMOCOCCAL VACCINE 50+ YEARS Completed 05/09/2015 , 11/08/2014 ZOSTER VACCINE Completed 05/07/2023, 12/28/2022 Insurance MEDICARE PART A AND B [facility] Care Teams Senior Business Manager Relationship Specialty Start Date End Date Josh Ruth MD [address] [facility] [address] [place] [id number] PCP - General Internal Medicine 07/01/24
[2025-08-30 10:43] LABS: Anion Gap 7 mmol/L (4-12); Blood Urea Nitrogen 18 mg/dL (9-20); Calcium 9.5 mg/dL (8.4-10.2); Carbon Dioxide 27 mmol/L (22-30); Chloride 105 mmol/L (98-107); Estimated Glomerular Filt Rate > 60; Glucose 109 mg/dL (65-110); Potassium 4.3 mmol/L (3.4-5.0); Sodium 139 mmol/L (137-145)
[2025-08-30 10:55] LABS: Iron 106 ug/dL (49-181)
[2025-08-30 11:10] LABS: Percent Iron Saturation 35 % (20-50)
[2025-08-30 11:21] LABS: Ferritin 67.90 ng/mL (11.1-264)
[2025-08-30 11:54] LABS: Vitamin B12 848.0 pg/mL (239-931)
== END 2025-08-30 09:21 | disposition home or self-care (01) ==
PROVIDERS: PCP Internal Medicine; Visit Provider Internal Medicine Hematology & Oncology
DX: D64.9 Anemia, unspecified (principal)
CPT/HCPCS: 36415; 80048; 82607; 82728; 82746; 83540; 83550; 85025